=== PATIENT | female | born 1930 | race Caucasian/White ===

== ENCOUNTER → 2017-03-12 09:42 | Outpatient (CLI) | payer MEDICARE, BC ==
[2013-12-21 09:04] VITALS: BMI 29.8
[~2017-03-12 09:42] MED LIST: BAYER CHEWABLE81 MG PO; HYDROCODONE-APA1 TAB PO; OCUVITE TABLET1 TA1 PO; PRINIVIL20 MG PO; TEMAZEPAM OR; TIMOLOL EYE EACH EYE; XALATAN 0.0052.5 ML RIGHT EYE
[2017-03-12 11:42] LABS: BASOPHILS 0.9 % (0-2); EOSINOPHILS 12.5 % (0-7); HEMATOCRIT 33.5 % (36.0-48.0); HEMOGLOBIN 10.7 g/dL (12-16); IMMATURE GRANULOCYTES 0.2 % (0-5); LYMPHOCYTES 30.4 % (15-50); MCH 27.4 pg (26.0-34.0); MCHC 31.9 g/dL (31.0-37.0); MCV 85.7 fL (80.0-100.0); MEAN PLATELET VOLUME 11.3 fL (7.4-10.4); MONOCYTES 11.6 % (2-11); NEUTROPHILS 44.4 % (40-80); RBC 3.91 10x6/uL (4.00-5.40); RDW 15.2 % (11.5-14.5); WBC 10.6 10x3/uL (4.8-10.8)
[2017-03-12 11:43] LABS: PLATELET COUNT 373 10x3/uL (130-400)
[2017-03-12 11:56] LABS: ALBUMIN 2.9 g/dL (3.4-5.0); ANION GAP 7.8 mmol/L (8-16); BILIRUBIN - TOTAL 0.44 mg/dL (0.2-1.3); CALCIUM 9.1 mg/dL (8.5-10.1); CARBON DIOXIDE 32.8 mmol/L (21.0-32.0); POTASSIUM - SERUM 3.6 mmol/L (3.5-5.1); PROTEIN - SERUM 6.9 g/dL (6.4-8.2)
--- NOTE | 2017-03-16 09:10 | EEG ---
PATIENT:LEONOR MONTGOMERY DATE OF SERVICE: 03/12/17 MEDICAL RECORD: [id number] DATE OF : [birth year] LOCATION: [facility] ADMISSION DATE: 03/12/17 REFERRING PHYSICIAN: INTERPRETING PHYSICIAN: MORIS CARDENAS MD DATE OF SERVICE: 03/12/2017 Referred as an outpatient by myself. ELECTROENCEPHALOGRAM NUMBER: [id number]. DATE OF EXAMINATION: 03/12/2017 at 10:30 a.m. TECHNICAL DATA: This electroencephalographic recording consists of approximately 20 minutes of data collection utilizing the international 10/20 system of electrode placement and both referential and non-referential montages. Sixteen channels of electrocerebral recording are accompanied by a 17th channel dedicated to the electrocardiographic rhythm and 2 channels of electromyographic recording. Recording is performed in the awake and drowsy states utilizing activation by photic stimulation. ELECTROENCEPHALOGRAPHIC DATA: The awake state comprises approximately 30% of the recorded electrocerebral activity. Electromyographic artifact is prominent and rapid eye movements are seen. The posterior dominant background is not well-developed during the study, but when seen consists of a symmetric semi-rhythmic waxing and waning 8-9 Hz alpha activity. The drowsy state comprises the remaining portion of the recorded electrocerebral activity. Electromyographic artifact is diminished and rapid eye movements are not seen. No abnormal nor focal slowing is identified. No epileptiform discharges are seen. Photic stimulation induces no abnormal change in the recorded electrocerebral activity. INTERPRETATION: Normal (awake and drowsy). This is a normal electroencephalographic recording. TRANSINT:[id number] Voice Confirmation ID: [id number] DOCUMENT ID: [id number] MORIS CARDENAS MD at 0910 CC: [id number] DICTATION DATE: 03/13/17 0659 UNIT CLERK: 03/13/17 0717 DEP CLI 03/12/17 [id number] [place] [id number]
== END | disposition home or self-care (01) ==
LOC: D.CN 09:42
PROVIDERS: Psychiatry & Neurology Neurology
DX: I63.29 Cerebral infarction due to unspecified occlusion or stenosis of other precerebral arteries (principal)

== ENCOUNTER → 2019-01-13 10:23 | Outpatient (CLI) | payer MEDICARE, BC ==
[2013-12-21 09:04] VITALS: BMI 29.8
--- NOTE | 2019-01-19 14:28 | EC ---
PATIENT:LEONOR MONTGOMERY DATE OF SERVICE: 01/13/19 SEX: F MEDICAL RECORD: [id number] DATE OF : [birth year] [facility] AGE [facility] PAT[facility]: 88 ADMISSION DATE: 01/13/19 REFERRING PHYSICIAN: INTERPRETING PHYSICIAN: OSMEL CAMP MD ECHOCARDIOGRAM REPORT ECHO CHARGES 4 ECHO COMPLETE Date: 01/13/19 CLINICAL DIAGNOSIS: CAD/ASSESS EF AND VALVES HX CVA HTN ECHOCARDIOGRAPHIC MEASUREMENTS (adult normal given) AC root (d.<3.7cm) 3.4 cm LV Septum d (<1.2 cm> 1.4 cm Valve Excursion 1.2 cm LV Septum (systole) 1.8 cm Left Atria (s.<4.0cm> 4.6 cm LVPW d(<1.2cm) 1.5 cm RV (d.<2.3cm) 3.9 cm LVPW (sytole) 1.9 cm LV diastole(<5.6CM) 4.3 cm MV E-F(>70mm/sec) cm LV systole 2.8 cm LVOT Diameter 1.6 cm MV exc.(>10mm) 1.4 cm Est.ejection fraction (50-75%) % DOPPLER: LVIT cm/sec A 41.0 cm/sec E 94.0 cm/sec LA cm/sec RVSP 50 mmHg LVOT 104 cm/sec AOP1/2T m/s Asc. Ao 158 cm/sec RVOT 71 cm/sec RA cm/sec PA 127 cm/sec AV Gradient Peak 9.92 mmHg AV Mean 5.88 mmHg AV Area 14.3 cm MV Gradient Peak 6.98 mmHg MV Mean 2.20 mmHg MV Area cm COMMENTS: Hoop Flaring Machine Operator Helper: 2 RASHAD MCDANIELS Binding Machine Operator: 3 Dr. Westfall TAPE# PACS Pericardial Effusion N DATE OF SERVICE: 01/13/2019 Adequate 2D, color flow imaging, spectral Doppler, and M-Mode LVH is present. LV internal dimension is normal. Wall motion is normal. EF is greater than or equal to 55%. Aortic valve is sclerosed without evidence of stenosis by Doppler interrogation. Left atrium is dilated at 4.6 cm. Mitral valve shows no prolapse. [id number] MR. Right-sided chamber is grossly normal. Moderate TR. ECHOCARDIOGRAM REPORT [id number] LEONOR MONTGOMERY TRANSINT:[id number] Voice Confirmation ID: [id number] DOCUMENT ID: [id number] OSMEL CAMP MD at 1428 CC: [id number] DICTATION DATE: 01/14/19 1445 REVERBERATORY FURNACE SUPERVISOR: 01/14/19 1542 DEP CLI 01/13/19 [place] [id number] [place] [id number]
== END | disposition home or self-care (01) ==
LOC: D.HCCARDIO 12-15 10:30
PROVIDERS: ATTEND Internal Medicine Interventional Cardiology
DX: I25.10 Atherosclerotic heart disease of native coronary artery without angina pectoris (principal)